=== PATIENT | female | born 1995 | race African-American/Black ===

== ENCOUNTER 2016-10-09 13:09 | Emergency (ER) | payer OTHER ==
[2016-10-09 14:13] VITALS: BP 110/70
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
== END 2016-10-09 14:12 | disposition home or self-care (01) ==
LOC: ED 13:09
DX: S09.90XA Unspecified injury of head, initial encounter (principal); V19.3XXA Pedal cyclist (driver) (passenger) injured in unspecified nontraffic accident, initial encounter; S80.211A Abrasion, right knee, initial encounter; S50.811A Abrasion of right forearm, initial encounter; S60.511A Abrasion of right hand, initial encounter
CPT/HCPCS: 99282